=== PATIENT | male | born 1990 | race Caucasian/White ===

== ENCOUNTER 2022-05-22 19:28 | Emergency (ER) | payer SELFPAY ==
[2022-05-22 19:44] VITALS: BP 124/84; PULSE 128; RESP 17; TEMP 98.2; BMI 29.9
[2022-05-22] MEDS ORDERED: diazePAM CARPU-JECT 10 MG/2 ML DISP.SYRIN IVPUSH ONE ×2 (21:04→21:37)
[2022-05-22] MEDS ORDERED: MULTIVITAMINS (DAILY MVI) TABLET (FP) PO ONE (21:06)
[2022-05-22] MEDS ORDERED: THIAMINE HCL 100 MG TABLET (FP) PO ONE (21:06)
[2022-05-22] MEDS ORDERED: FOLIC ACID 1 MG TABLET (FP) PO ONE (21:06)
[2022-05-22] MEDS ORDERED: diazePAM CARPU-JECT 10 MG/2 ML DISP.SYRIN ONE ×2 (21:13→21:49)
[2022-05-22 21:44] LABS: BASO % 0.7 % (0-2.0); EOS % 1.3 % (0-4.5); HEMATOCRIT 46.4 % (35.4-49); LYMPH % 28.2 % (8-40); MCH 32.4 pg (25.7-33.7); MCHC 34.5 g/dl (32.0-35.9); MEAN CELL VOLUME 93.7 fl (80-96); MEAN PLT VOLUME 7.1 fl (7.5-11.1); MONO % 10.7 % (3.8-10.2); NEUT % 59.1 % (42.8-82.8); PLATELET COUNT 340 10^3/uL (134-434); RBC 4.95 M/mm3 (4.00-5.60); RDW 14.1 % (11.9-15.9); WHITE BLOOD COUNT 4.9 K/mm3 (4.0-10.0)
[2022-05-22 22:05] LABS: CALCIUM 9.4 mg/dL (8.5-10.1)
[2022-05-22 22:06] LABS: ALBUMIN 4.4 g/dl (3.4-5.0); BLOOD UREA NITROGEN 13.2 mg/dL (7-18)
[2022-05-22 22:10] LABS: TOT PROT 7.6 g/dl (6.4-8.2)
[2022-05-22 22:59] LABS: BILIRUBIN,TOTAL 0.4 mg/dL (0.2-1)
[2022-05-22] MEDS ORDERED: MULTIVITAMINS (DAILY MVI) TABLET (FP) ONE (23:01)
[2022-05-22] MEDS ORDERED: FOLIC ACID 1 MG TABLET (FP) ONE (23:01)
[2022-05-22] MEDS ORDERED: THIAMINE HCL 100 MG TABLET (FP) ONE (23:01)
== END 2022-05-22 23:14 | disposition home or self-care (01) ==
LOC: JER 19:28
PROC: 3E033NZ Introduction of Analgesics, Hypnotics, Sedatives into Peripheral Vein, Percutaneous Approach (ICD-10-PCS; principal; 2022-05-22)
PROC: 3E033NZ Introduction of Analgesics, Hypnotics, Sedatives into Peripheral Vein, Percutaneous Approach (ICD-10-PCS; 2022-05-22)
DX: F10.939 Alcohol use, unspecified with withdrawal, unspecified (principal)
CPT/HCPCS: 0241U-QW; 36415; 80053; 85025; 93005; 93010; 99284-25

== ENCOUNTER 2022-05-22 23:38 | Inpatient (IN) | payer OTHER ==
[2022-05-23 00:02] VITALS: RESP 18; BMI 28.6
[2022-05-23] MEDS ORDERED: IBUPROFEN 600 MG TABLET (FP) PO PRN (00:18)
[2022-05-23] MEDS ORDERED: chlordiazePOXIDE HCL 25 MG CAPSULE PO ONE (00:18)
[2022-05-23] MEDS ORDERED: MAG HYDROX/AL HYDROX/SIMETH 30 ML UNIT-DOSE CUP PO PRN (00:18)
[2022-05-23] MEDS ORDERED: hydrOXYzine PAMOATE 25 MG CAPSULE (FP) PO PRN (00:18)
[2022-05-23] MEDS ORDERED: ONDANSETRON *ODT* 4 MG TABLET SL PRN (00:18)
[2022-05-23] MEDS ORDERED: NALOXONE HCL (KLOXXADO) 8 MG SPRAY NS PRN (00:18)
[2022-05-23] MEDS ORDERED: MAGNESIUM HYDROX 2400MG/30ML ORAL SUSPENSION 30 ML CUP PO PRN (00:18)
[2022-05-23] MEDS ORDERED: IBUPROFEN 400 MG TABLET (FP) PO PRN (00:18)
[2022-05-23] MEDS ORDERED: P-EPHED 60MG/TRIPROLIDI 2.5MG TABLET PO PRN (00:18)
[2022-05-23] MEDS ORDERED: BENZOCAINE/MENTHOL (CHLORASEPTIC ) LOZENGE MM PRN (00:18)
[2022-05-23] MEDS ORDERED: LOPERAMIDE HCL 2 MG CAPSULE PO PRN (00:18)
[2022-05-23] MEDS ORDERED: chlordiazePOXIDE HCL 25 MG CAPSULE PO PRN (00:18)
[2022-05-23] MEDS ORDERED: guaiFENesin 200 MG/10 ML 10 ML UNIT-DOSE CUPS PO PRN (00:18)
[2022-05-23] MEDS ORDERED: BISMUTH SUBSALICYLATE 524 MG/30 ML PO PRN (00:18)
[2022-05-23] MEDS ORDERED: MAGNESIUM CITRATE 300 ML BOTTLE PO PRN (00:18)
[2022-05-23] MEDS ORDERED: DICYCLOMINE HCL 10 MG CAPSULE PO PRN (00:18)
[2022-05-23] MEDS ORDERED: ACETAMINOPHEN 325 MG TABLET (FP) PO PRN ×2 (00:18)
[2022-05-23] MEDS: chlordiazePOXIDE HCL 25 MG CAPSULE PO SCH ×2 (05:30→10:25)
[2022-05-23 08:33] VITALS: BP 124/60; PULSE 65; TEMP 97.7
[2022-05-23] MEDS ORDERED: PRENATAL VITAMINS W/ FOLIC ACID TABLET (FP) PO SCH (10:00)
[2022-05-23] MEDS ORDERED: MELATONIN 5 MG TABLETS PO SCH (22:00)
[2022-05-23] MEDS ORDERED: THIAMINE HCL 100 MG TABLET (FP) PO SCH (22:00)
[2022-05-24] MEDS ORDERED: chlordiazePOXIDE HCL 25 MG CAPSULE PO SCH (05:00)
[2022-05-25] MEDS ORDERED: chlordiazePOXIDE HCL 10 MG CAPSULE PO PRN
[2022-05-25] MEDS ORDERED: chlordiazePOXIDE HCL 10 MG CAPSULE PO SCH (05:00)
[2022-05-26] MEDS ORDERED: chlordiazePOXIDE HCL 10 MG CAPSULE PO SCH (05:00)
[2022-05-27] MEDS ORDERED: chlordiazePOXIDE HCL 10 MG CAPSULE PO ONE (05:00)
== END 2022-05-23 11:10 | disposition left against medical advice (07) | DRG 770 ==
LOC: YASAS 23:38 → Y3N 05-23 01:10
PROVIDERS: ADMIT Surgery; ATTEND Surgery
PROC: HZ2ZZZZ Detoxification Services for Substance Abuse Treatment (ICD-10-PCS; principal; 2022-05-23)
DX: F10.230 Alcohol dependence with withdrawal, uncomplicated (principal); F10.24 Alcohol dependence with alcohol-induced mood disorder; F32.A Depression, unspecified; Z91.14 Patient's other noncompliance with medication regimen
CPT/HCPCS: 36415; 86780; 93005; 93010; C9803-CS; U0003; U0005

== ENCOUNTER 2022-05-23 21:13 | Inpatient (IN) | payer OTHER ==
[2022-05-23 21:43] VITALS: BMI 29.7
[2022-05-23] MEDS ORDERED: diazePAM CARPU-JECT 10 MG/2 ML DISP.SYRIN IVPUSH ONE (21:48)
[2022-05-23] MEDS ORDERED: FOLIC ACID INJECTION - 1 MG, THIAMINE HCL 100 MG, MULTIVIT INJECTION ADULT 10 ML in SOD... IVPB ONE (22:23)
[2022-05-23] MEDS ORDERED: diazePAM CARPU-JECT 10 MG/2 ML DISP.SYRIN ONE (22:33)
[2022-05-23 22:39] LABS: BASO % 0.5 % (0-2.0); EOS % 2.9 % (0-4.5); HEMOGLOBIN 14.9 GM/dL (11.7-16.9); LYMPH % 34.3 % (8-40); MCH 32.5 pg (25.7-33.7); MCHC 34.6 g/dl (32.0-35.9); MEAN CELL VOLUME 93.7 fl (80-96); MEAN PLT VOLUME 6.8 fl (7.5-11.1); MONO % 11.7 % (3.8-10.2); NEUT % 50.6 % (42.8-82.8); PLATELET COUNT 287 10^3/uL (134-434); RBC 4.59 M/mm3 (4.00-5.60); RDW 13.9 % (11.9-15.9); WHITE BLOOD COUNT 4.9 K/mm3 (4.0-10.0)
[2022-05-23 23:06] LABS: BLOOD UREA NITROGEN 13.1 mg/dL (7-18); CALCIUM 9.5 mg/dL (8.5-10.1)
[2022-05-23 23:07] LABS: ALBUMIN 4.1 g/dl (3.4-5.0)
[2022-05-23 23:09] LABS: CREATININE 1.2 mg/dL (0.55-1.3)
[2022-05-23 23:11] LABS: BILIRUBIN,TOTAL 0.4 mg/dL (0.2-1); TOT PROT 6.9 g/dl (6.4-8.2)
[2022-05-24] MEDS ORDERED: LACTATED RINGERS SOLUTION 1,000 ML IV SCH (02:15)
[2022-05-24] MEDS ORDERED: LORazepam 1 MG TABLET PO PRN (03:07)
[2022-05-24] MEDS ORDERED: LORazepam 1 MG TABLET PO SCH (05:00)
[2022-05-24] MEDS ORDERED: LORazepam 1 MG TABLET ONE (05:25)
[2022-05-24 06:40] LABS: PH,URINE 5.5 (5.0-8.0); URINE APPEARANCE CLEAR; URINE BILIRUBIN NEGATIVE (NEGATIVE); URINE COLOR YELLOW; URINE GLUCOSE (UA) NEGATIVE (NEGATIVE); URINE KETONE TRACE (NEGATIVE); URINE LEUK ESTERASE NEGATIVE (NEGATIVE); URINE NITRITE NEGATIVE (NEGATIVE); URINE PROTEIN NEGATIVE (NEGATIVE)
[2022-05-24 07:26] LABS: BASO % 0.8 % (0-2.0); EOS % 3.2 % (0-4.5); HEMATOCRIT 40.7 % (35.4-49); MCH 32.5 pg (25.7-33.7); MCHC 34.3 g/dl (32.0-35.9); MEAN CELL VOLUME 94.7 fl (80-96); MONO % 10.5 % (3.8-10.2); NEUT % 51.5 % (42.8-82.8); PLATELET COUNT 235 10^3/uL (134-434); RDW 13.9 % (11.9-15.9); WHITE BLOOD COUNT 3.2 K/mm3 (4.0-10.0)
[2022-05-24 07:46] LABS: ALBUMIN 3.9 g/dl (3.4-5.0); CALCIUM 8.9 mg/dL (8.5-10.1); MAGNESIUM 1.7 mg/dL (1.8-2.4)
[2022-05-24 07:48] LABS: BLOOD UREA NITROGEN 13.2 mg/dL (7-18)
[2022-05-24 07:50] LABS: PHOSPHOROUS 4.5 mg/dL (2.5-4.9)
[2022-05-24 07:52] LABS: BILIRUBIN,TOTAL 0.4 mg/dL (0.2-1); TOT PROT 6.5 g/dl (6.4-8.2)
[2022-05-24 08:25] LABS: METHADONE, UR NEGATIVE (NEGATIVE); OPIATES, URI NEGATIVE (NEGATIVE); PHENCYCLIDINE,URINE NEGATIVE (NEGATIVE); URINE BARBITURATES NEGATIVE (NEGATIVE)
[2022-05-24 08:26] LABS: COCAINE, UR NEGATIVE (NEGATIVE); URINE AMPHETAMINES NEGATIVE (NEGATIVE); URINE BENZODIAZEPINES POSITIVE (NEGATIVE)
[2022-05-24 08:56] VITALS: BP 120/60; PULSE 84; RESP 14; TEMP 98.2
[2022-05-24] MEDS ORDERED: MAGNESIUM OXIDE 400 MG TABLET (FP) PO ONE (09:52)
[2022-05-24] MEDS ORDERED: FOLIC ACID 1 MG TABLET (FP) PO SCH (10:00)
[2022-05-24] MEDS ORDERED: THIAMINE HCL 200 MG/2 ML VIAL IVPB SCH (10:00)
[2022-05-24] MEDS ORDERED: ENOXAPARIN NA (PORCINE) 40 MG/0.4 ML DISP.SYRIN SQ SCH (10:00)
[2022-05-25] MEDS ORDERED: LORazepam 1 MG TABLET PO SCH (05:00)
[2022-05-26] MEDS ORDERED: LORazepam 0.5 MG TABLET PO PRN
[2022-05-26] MEDS ORDERED: LORazepam 0.5 MG TABLET PO SCH (05:00)
[2022-05-27] MEDS ORDERED: LORazepam 0.5 MG TABLET PO ONE (05:00)
== END 2022-05-24 08:58 | disposition left against medical advice (07) | DRG 770 ==
LOC: JER 21:13 → JERBED 05-24 01:45
PROVIDERS: ADMIT Internal Medicine; ATTEND Internal Medicine
PROC: HZ2ZZZZ Detoxification Services for Substance Abuse Treatment (ICD-10-PCS; principal; 2022-05-23)
DX: F10.239 Alcohol dependence with withdrawal, unspecified (principal); R56.9 Unspecified convulsions; Z59.00 Homelessness unspecified; I45.81 Long QT syndrome
CPT/HCPCS: 36415; 70450-TC; 80053; 80061; 80307; 81003; 83735; 84100; 85025; 87086; 93005; 93010; 99285-25; C9803-CS; U0003; U0005

== ENCOUNTER 2024-07-08 13:43 | Inpatient (IN) | payer OTHER ==
[2024-07-08] MEDS ORDERED: LORazepam 2 MG/ML SDV VIAL ONE (14:07)
[2024-07-08] MEDS: LORazepam 2 MG/ML SDV VIAL IVPUSH ONE (14:09)
[2024-07-08 14:25] VITALS: BMI 28.1
[2024-07-08] MEDS ORDERED: IBUPROFEN 400 MG TABLET (FP) PO PRN (15:12)
[2024-07-08] MEDS ORDERED: BENZOCAINE/MENTHOL (CHLORASEPTIC ) LOZENGE MM PRN (15:12)
[2024-07-08] MEDS ORDERED: POLYETHYLENE GLYCOL (HEALTHYLAX) 3350 17 GM PACKET PO PRN (15:12)
[2024-07-08] MEDS ORDERED: ACETAMINOPHEN 325 MG TABLET (FP) PO PRN (15:12)
[2024-07-08] MEDS ORDERED: MAG HYDROX/AL HYDROX/SIMETH 30 ML UNIT-DOSE CUP PO PRN (15:12)
[2024-07-08] MEDS ORDERED: LOPERAMIDE HCL 2 MG CAPSULE PO PRN (15:12)
[2024-07-08] MEDS ORDERED: ONDANSETRON *ODT* 4 MG TABLET SL PRN (15:12)
[2024-07-08] MEDS ORDERED: BISMUTH SUBSALICYLATE 262 MG/15 ML BTL PO PRN (15:12)
[2024-07-08] MEDS ORDERED: NALOXONE (NARCAN) HCL 4 MG/0.1 ML SPRAY NS PRN (15:12)
[2024-07-08] MEDS ORDERED: hydrOXYzine PAMOATE 25 MG CAPSULE (FP) PO PRN (15:12)
[2024-07-08] MEDS ORDERED: IBUPROFEN 600 MG TABLET (FP) PO PRN (15:12)
[2024-07-08] MEDS ORDERED: diazePAM 5 MG TABLET PO PRN ×2 (15:12→15:50)
[2024-07-08] MEDS ORDERED: BENZONATATE 200 MG CAPSULE PO PRN (15:12)
[2024-07-08] MEDS ORDERED: guaiFENesin 600 MG TABLET.ER (FP) PO PRN (15:12)
[2024-07-08] MEDS ORDERED: MAGNESIUM HYDROX 2400MG/30ML ORAL SUSPENSION 30 ML CUP PO PRN (15:12)
[2024-07-08] MEDS ORDERED: METHOCARBAMOL 500 MG TABLET PO PRN (15:12)
[2024-07-08] MEDS ORDERED: DICYCLOMINE HCL 10 MG CAPSULE PO PRN (15:12)
[2024-07-08] MEDS ORDERED: diazePAM 5 MG TABLET PO SCH ×2 (17:00)
[2024-07-08] MEDS ORDERED: amLODIPine BESYLATE 5 MG TABLET (FP) ONE (18:11)
[2024-07-08] MEDS ORDERED: diazePAM 5 MG TABLET ONE (18:11)
[2024-07-08] MEDS: amLODIPine BESYLATE 5 MG TABLET (FP) PO SCH (18:16)
[2024-07-08] MEDS ORDERED: chlordiazePOXIDE HCL 25 MG CAPSULE PO PRN (18:16)
[2024-07-08] MEDS: diazePAM 5 MG TABLET PO SCH ×2 (18:17→19:01)
[2024-07-08 19:12] VITALS: BP 113/78; PULSE 138; RESP 18; TEMP 99.3
[2024-07-08] MEDS: chlordiazePOXIDE HCL 25 MG CAPSULE PO ONE (19:38)
[2024-07-08] MEDS ORDERED: MELATONIN 5 MG TABLETS PO SCH (22:00)
[2024-07-08] MEDS ORDERED: THIAMINE 100 MG TABLET PO SCH (22:00)
[2024-07-08] MEDS ORDERED: NALTREXONE HCL 50 MG TABLET PO SCH (22:00)
[2024-07-08] MEDS ORDERED: levETIRAcetam 500 MG TABLET (FP) PO SCH (22:00)
[2024-07-08] MEDS ORDERED: chlordiazePOXIDE HCL 25 MG CAPSULE PO SCH (23:00)
[2024-07-09] MEDS ORDERED: diazePAM 5 MG TABLET PO SCH (06:00)
[2024-07-09] MEDS ORDERED: PRENATAL VITAMINS W/ FOLIC ACID TABLET (FP) PO SCH (10:00)
[2024-07-10] MEDS ORDERED: chlordiazePOXIDE HCL 25 MG CAPSULE PO SCH (05:00)
[2024-07-10] MEDS ORDERED: diazePAM 5 MG TABLET PO SCH ×2 (06:00)
[2024-07-11] MEDS ORDERED: chlordiazePOXIDE HCL 10 MG CAPSULE PO PRN
[2024-07-11] MEDS ORDERED: chlordiazePOXIDE HCL 10 MG CAPSULE PO SCH (05:00)
[2024-07-11] MEDS ORDERED: diazePAM 5 MG TABLET PO ONE (06:00)
[2024-07-11] MEDS ORDERED: diazePAM 5 MG TABLET PO SCH (06:00)
[2024-07-12] MEDS ORDERED: chlordiazePOXIDE HCL 10 MG CAPSULE PO SCH (05:00)
[2024-07-12] MEDS ORDERED: diazePAM 5 MG TABLET PO ONE (06:00)
[2024-07-13] MEDS ORDERED: chlordiazePOXIDE HCL 10 MG CAPSULE PO ONE (05:00)
== END 2024-07-08 19:13 | disposition left against medical advice (07) | DRG 770 ==
LOC: YASAS 13:43 → Y3N 16:37
PROVIDERS: ADMIT Allergy & Immunology; ATTEND Surgery
PROC: HZ2ZZZZ Detoxification Services for Substance Abuse Treatment (ICD-10-PCS; principal; 2024-07-08)
DX: F10.230 Alcohol dependence with withdrawal, uncomplicated (principal); I10 Essential (primary) hypertension; R56.9 Unspecified convulsions; Z86.69 Personal history of other diseases of the nervous system and sense organs
CPT/HCPCS: 82962; 93005; 93010

== ENCOUNTER 2024-07-12 08:49 | Inpatient (IN) | payer OTHER ==
[2024-07-12] MEDS ORDERED: BENZOCAINE/MENTHOL (CHLORASEPTIC ) LOZENGE MM PRN (09:26)
[2024-07-12] MEDS ORDERED: ONDANSETRON *ODT* 4 MG TABLET SL PRN (09:26)
[2024-07-12] MEDS ORDERED: NALOXONE (NARCAN) HCL 4 MG/0.1 ML SPRAY NS PRN (09:26)
[2024-07-12] MEDS ORDERED: IBUPROFEN 600 MG TABLET (FP) PO PRN (09:26)
[2024-07-12] MEDS ORDERED: DICYCLOMINE HCL 10 MG CAPSULE PO PRN (09:26)
[2024-07-12] MEDS ORDERED: MAG HYDROX/AL HYDROX/SIMETH 30 ML UNIT-DOSE CUP PO PRN (09:26)
[2024-07-12] MEDS ORDERED: chlordiazePOXIDE HCL 25 MG CAPSULE PO PRN (09:26)
[2024-07-12] MEDS ORDERED: BENZONATATE 200 MG CAPSULE PO PRN (09:26)
[2024-07-12] MEDS ORDERED: MAGNESIUM HYDROX 2400MG/30ML ORAL SUSPENSION 30 ML CUP PO PRN (09:26)
[2024-07-12] MEDS ORDERED: guaiFENesin 600 MG TABLET.ER (FP) PO PRN (09:26)
[2024-07-12] MEDS ORDERED: BISMUTH SUBSALICYLATE 262 MG/15 ML BTL PO PRN (09:26)
[2024-07-12] MEDS ORDERED: POLYETHYLENE GLYCOL (HEALTHYLAX) 3350 17 GM PACKET PO PRN (09:26)
[2024-07-12] MEDS ORDERED: LOPERAMIDE HCL 2 MG CAPSULE PO PRN (09:26)
[2024-07-12] MEDS ORDERED: IBUPROFEN 400 MG TABLET (FP) PO PRN (09:26)
[2024-07-12 09:45] VITALS: BMI 28.2
[2024-07-12] MEDS ORDERED: chlordiazePOXIDE HCL 25 MG CAPSULE ONE ×2 (09:49→11:18)
[2024-07-12] MEDS ORDERED: PRENATAL VITAMINS W/ FOLIC ACID TABLET (FP) PO ONE (09:49)
[2024-07-12] MEDS: chlordiazePOXIDE HCL 25 MG CAPSULE PO ONE (09:51)
[2024-07-12] MEDS: PRENATAL VITAMINS W/ FOLIC ACID TABLET (FP) PO SCH (09:51)
[2024-07-12] MEDS ORDERED: levETIRAcetam 500 MG TABLET (FP) PO ONE (11:19)
[2024-07-12] MEDS ORDERED: amLODIPine BESYLATE 5 MG TABLET (FP) ONE (11:19)
[2024-07-12] MEDS: levETIRAcetam 500 MG TABLET (FP) PO ONE (11:20)
[2024-07-12] MEDS: chlordiazePOXIDE HCL 25 MG CAPSULE PO SCH (11:20)
[2024-07-12] MEDS: amLODIPine BESYLATE 5 MG TABLET (FP) PO SCH (11:20)
[2024-07-12] MEDS: NALTREXONE HCL 50 MG TABLET PO SCH (11:50)
[2024-07-12] MEDS: ACETAMINOPHEN 325 MG TABLET (FP) PO PRN (16:25)
[2024-07-12] MEDS: levETIRAcetam 500 MG TABLET (FP) PO SCH (22:08)
[2024-07-12] MEDS: THIAMINE 100 MG TABLET PO SCH (22:09)
[2024-07-12] MEDS: MELATONIN 5 MG TABLETS PO SCH (22:09)
[2024-07-13] MEDS: METHOCARBAMOL 500 MG TABLET PO PRN (09:54)
[2024-07-13] MEDS: hydrOXYzine PAMOATE 25 MG CAPSULE (FP) PO PRN (09:54)
[2024-07-13 12:29] LABS: HEMATOCRIT 40.8 % (35.4-49); HEMOGLOBIN 13.9 GM/dL (11.7-16.9); MCH 31.4 pg (25.7-33.7); MEAN CELL VOLUME 92.2 fl (80-96); MEAN PLT VOLUME 7.2 fl (7.5-11.1); PLATELET COUNT 138 10^3/uL (134-434); RBC 4.43 M/mm3 (4.00-5.60); RDW 15.7 % (11.9-15.9); WHITE BLOOD COUNT 3.3 K/mm3 (4.0-10.0)
[2024-07-13 12:31] LABS: CHLORIDE 101 mmol/L (98-107); POTASSIUM 3.2 mmol/L (3.5-5.1); SODIUM 139 mmol/L (136-145)
[2024-07-13 12:37] LABS: GLUCOSE,RANDOM 85 mg/dL (74-106)
[2024-07-13 12:39] LABS: ALBUMIN 3.5 g/dl (3.4-5.0); ANION GAP 8 mmol/L (4-13); CALCIUM 9.4 mg/dL (8.5-10.1); CO2 30 mmol/L (21-32)
[2024-07-13 12:43] LABS: CREATININE 0.7 mg/dL (0.55-1.3); SGOT/AST 40 U/L (15-37); SGPT/ALT 50 U/L (13-61)
[2024-07-13 12:44] LABS: BILIRUBIN,TOTAL 1.4 mg/dL (0.2-1); TOT PROT 6.2 g/dl (6.4-8.2)
[2024-07-13 12:45] LABS: ALK PHOS 70 U/L (45-117)
[2024-07-13] MEDS: POTASSIUM CHLORIDE ORAL LIQUID 20 MEQ/15 ML PO ONE (16:10)
[2024-07-13] MEDS: LACTULOSE 20 GM/30 ML UDC (FOR ORAL USE ONLY) PO SCH (17:18)
[2024-07-13] MEDS: POTASSIUM CHLORIDE ORAL LIQUID 20 MEQ/15 ML PO SCH (22:19)
[2024-07-13] MEDS: MELATONIN 5 MG TABLETS PO SCH (22:19)
[2024-07-14] MEDS: chlordiazePOXIDE HCL 25 MG CAPSULE PO SCH (05:45)
[2024-07-15] MEDS ORDERED: chlordiazePOXIDE HCL 10 MG CAPSULE PO PRN
[2024-07-15] MEDS: chlordiazePOXIDE HCL 10 MG CAPSULE PO SCH (05:35)
[2024-07-15 06:21] VITALS: BP 113/75; PULSE 83; RESP 17; TEMP 97.6
[2024-07-15] MEDS: NALOXONE (NYS OPIOID OVERDOSE PROGRAM) 4 MG/0.1 ML SPRAY NS SCH (10:45)
[2024-07-16] MEDS ORDERED: chlordiazePOXIDE HCL 10 MG CAPSULE PO SCH (05:00)
[2024-07-17] MEDS ORDERED: chlordiazePOXIDE HCL 10 MG CAPSULE PO ONE (05:00)
== END 2024-07-15 09:00 | disposition other institution (70) | DRG 775 ==
LOC: YASAS 08:49 → Y6N 11:04
PROVIDERS: ADMIT Allergy & Immunology; ATTEND Surgery
PROC: HZ2ZZZZ Detoxification Services for Substance Abuse Treatment (ICD-10-PCS; principal; 2024-07-12)
DX: F10.230 Alcohol dependence with withdrawal, uncomplicated (principal); F19.24 Other psychoactive substance dependence with psychoactive substance-induced mood disorder; F32.A Depression, unspecified; E87.6 Hypokalemia; I10 Essential (primary) hypertension; R76.11 Nonspecific reaction to tuberculin skin test without active tuberculosis; R79.89 Other specified abnormal findings of blood chemistry; Z59.00 Homelessness unspecified
CPT/HCPCS: 36415; 80053; 80307; 82140; 85027; 86780